=== PATIENT | male | born 1965 | race Caucasian/White ===

== ENCOUNTER 2025-05-15 05:55 | Emergency (ER) | payer BC, OTHER ==
[2025-05-15] MEDS: Acetaminophen/oxyCODONE 325-5 MG Tab PO ONE (06:07)
== END 2025-05-15 06:45 | disposition home or self-care (01) ==
LOC: FB.ED 05:55
DX: M51.16 Intervertebral disc disorders with radiculopathy, lumbar region (principal); I10 Essential (primary) hypertension; Z79.899 Other long term (current) drug therapy
CPT/HCPCS: 99283; A9270